=== PATIENT | male | born 1985 | race Caucasian/White ===

== ENCOUNTER 2021-01-05 10:40 | Emergency (ER) | payer BC ==
[~2021-01-05] VITALS: Ht 175.3 cm; Wt 68.2 kg
[2021-01-05] MEDS ORDERED: NASA MIST SALIN75 ML NS (11:25)
[2021-01-05] MEDS ORDERED: ZYRTEC ALLERGY10 MG PO (11:25)
[2021-01-05 12:28] VITALS: BP 117/80
== END 2021-01-05 12:29 | disposition home or self-care (01) ==
LOC: ED 10:40
DX: S61.215A Laceration without foreign body of left ring finger without damage to nail, initial encounter (principal); W26.8XXA Contact with other sharp object(s), not elsewhere classified, initial encounter
CPT/HCPCS: 90715